=== PATIENT | female | born 1965 | race Caucasian/White ===

== ENCOUNTER 2017-04-09 19:27 | Emergency (ER) | payer OTHER ==
[~2017-04-09] VITALS: Ht 160 cm; Wt 45.5 kg
[~2017-04-09 19:27] MED LIST: CHOL4 PO; MEGE40TA PO; RANI150 PO; REME15TA PO; VENTAER INH
[2017-04-09 19:30] VITALS: BP 188/105; PULSE 110; RESP 18; TEMP 99; O2SAT 96
[2017-04-09 20:46] VITALS: BP 186/99; PULSE 94; RESP 14; O2SAT 99
[2017-04-09] MEDS ORDERED: PRAM1TAB PO (20:46)
[2017-04-09] MEDS ORDERED: MIRT30TA PO (20:46)
[2017-04-09] MEDS ORDERED: ZOLP5TAB3 PO (20:46)
[2017-04-09] MEDS ORDERED: GABA300C5 PO (20:46)
[2017-04-09 20:56] VITALS: O2SAT 100
[2017-04-09] MEDS ORDERED: SODIUM CHLORIDE 0.9% FLUSH 10 ML FLUSH IVF PRN (21:00)
--- NOTE | 2017-04-09 21:02 | PD ---
HPI Chief Complaint: Chest Pain Time Seen by Provider: 20:43 Travel History International Travel<30 days: No Contact w/Intl Traveler<30days: No Traveled to known affect area: No History of Present Illness HPI The patient was seen and examined in the presence of the nurse. This patient complains of chest pain. She's had chest pain every day for well over a year. It last for hours and hours on end. It is not exertional. She's had extensive evaluation for it. She said surgical attendant evaluation including negative stress testing. She's had negative CT of the thorax. Pain is located in the left lower chest underneath her left breast. She seen her primary physician for many times including 2 weeks ago and was started on gabapentin for possible fibromyalgia type diagnosis. She denies fever or productive cough or shortness of breath. Symptoms severity is moderate. No alleviating factors. She does note that it's worse when she is very stressed. PFSH Past Medical History Asthma: Yes Blood Disorders: No Anxiety: Yes Depression: Yes Cancer: No Cardiovascular Problems: Yes (VASCULAR INSUFFICENCY) Chest Pain: Yes COPD: Yes Diabetes: No Endocrine: No Gastrointestinal Disorders: Yes (GI BLEED) Glaucoma: No Genitourinary: Yes Headaches: Yes Hepatitis: No Hiatal Hernia: No Hypertension: Yes Immune Disorder: No Implanted Vascular Access Dvce: Yes Musculoskeletal: Yes Neurologic: Yes (PAIN RADIATION BRICE. LEGS) Psychiatric: Yes (CLAUSTRAPHOBIA, EATING DISORDER) Reproductive: No Respiratory: Yes (asthma) Immunizations Current: Yes Migraines: Yes Seizures: Yes (after anesthesia) Thyroid Disease: No Tetanus Vaccination: Unknown Influenza Vaccination: No ?: Not Past Surgical History Abdominal Surgery: No Body Medical Devices: x2 lung marquez - spinal stimulator lower back Cardiac Surgery: No Ear Surgery: No Endocrine Surgery: No Eye Surgery: No Genitourinary Surgery: No Gynecologic Surgery: No Neurologic Surgery: Yes (FUSION OF BACK) Oral Surgery: No Pacemaker: No Thoracic Surgery: Yes (RIGHT LUNG STAPLED) Other Surgery: Yes (STIMULATOR IMPLANT/4 SCRES IN BACK) Social History Alcohol Use: Yes (2 glasses wine qd) Tobacco Use: Yes (1/2 PPD) Substance Use: Yes (MJ) Allergies-Medications (Allergen,Severity, Reaction): Coded Allergies: No Known Allergies (Verified , 04/09/17) Reported Meds & Prescriptions Reported Meds & Active Scripts Active Reported Zolpidem (Zolpidem Tartrate) 5 Mg Tab 5 Mg PO HS PRN Pramipexole (Pramipexole Dihydrochloride) 1 Mg Tab 1 Mg PO HS Mirtazapine 30 Mg Tab 30 Mg PO HS Gabapentin 300 Mg Cap 300 Mg PO DAILY Review of Systems General / Constitutional: No: Fever Eyes: No: Visual changes HENT: No: Headaches Cardiovascular: Positive: Chest Pain or Discomfort Respiratory: No: Shortness of Breath Gastrointestinal: No: Abdominal Pain Genitourinary: No: Dysuria Musculoskeletal: No: Pain Skin: No Rash Neurologic: No: Weakness Psychiatric: No: Depression Endocrine: No: Polydipsia Hematologic/Lymphatic: No: Easy Bruising Physical Exam Narrative GENERAL: Well-nourished, well-developed patient in no apparent distress. SKIN: Focused skin assessment reveals no rash and nodules. Skin is Warm and dry. HEAD: Atraumatic. Normocephalic. EYES: Pupils equal and round. No scleral icterus. No injection or drainage. ENT: No nasal bleeding or discharge. Mucous membranes pink and moist. NECK: Trachea midline. No JVD. CARDIOVASCULAR: Regular rate and rhythm. No murmur appreciated. RESPIRATORY: No accessory muscle use. Clear to auscultation. Breath sounds equal bilaterally. GASTROINTESTINAL: Abdomen soft, non-tender, nondistended. Hepatic and splenic margins not palpable. MUSCULOSKELETAL: No obvious deformities. No clubbing. No cyanosis. No edema. No significant and consistent chest wall tenderness NEUROLOGICAL: Awake and alert. No obvious cranial nerve deficits. Motor grossly within normal limits. Normal speech. PSYCHIATRIC: Appropriate mood and affect; insight and judgment normal. Data Data Last Documented VS Vital Signs Date Time Temp Pulse Resp B/P (MAP) Pulse Ox O2 Delivery O2 Flow Rate FiO2 04/09/17 20:56 100 Room Air 04/09/17 20:51 95 04/09/17 20:46 14 04/09/17 19:30 99.0 Orders Orders Electrocardiogram (04/09/17 20:53) Basic Metabolic Panel (Bmp) (04/09/17 20:53) Ckmb (Isoenzyme) Profile (04/09/17 20:53) Complete Blood Count With Diff (04/09/17 20:53) Troponin I (04/09/17 20:53) Chest, Single Ap (04/09/17 20:53) Ecg Monitoring (04/09/17 20:53) Iv Access Insert/Monitor (04/09/17 20:53) Oximetry (04/09/17 20:53) Sodium Chloride 0.9% Flush (Ns Flush) (04/09/17 21:00) CKMB (04/09/17 21:00) CKMB% (04/09/17 21:00) Labs Laboratory Tests Test 04/09/17 21:00 White Blood Count 10.4 TH/MM3 Red Blood Count 4.28 MIL/MM3 Hemoglobin 14.9 GM/DL Hematocrit 45.2 % Mean Corpuscular Volume 105.7 FL Mean Corpuscular Hemoglobin 34.9 PG Mean Corpuscular Hemoglobin Concent 33.0 % Red Cell Distribution Width 15.2 % Platelet Count 378 TH/MM3 Mean Platelet Volume 8.2 FL Neutrophils (%) (Auto) 61.4 % Lymphocytes (%) (Auto) 27.9 % Monocytes (%) (Auto) 7.9 % Eosinophils (%) (Auto) 1.8 % Basophils (%) (Auto) 1.0 % Neutrophils # (Auto) 6.4 TH/MM3 Lymphocytes # (Auto) 2.9 TH/MM3 Monocytes # (Auto) 0.8 TH/MM3 Eosinophils # (Auto) 0.2 TH/MM3 Basophils # (Auto) 0.1 TH/MM3 CBC Comment DIFF FINAL Differential Comment Blood Urea Nitrogen 13 MG/DL Creatinine 0.90 MG/DL Random Glucose 74 MG/DL Calcium Level 8.8 MG/DL Sodium Level 138 MEQ/L Potassium Level 4.0 MEQ/L Chloride Level 105 MEQ/L Carbon Dioxide Level 19.5 MEQ/L Anion Gap 14 MEQ/L Estimat Glomerular Filtration Rate 66 ML/MIN Total Creatine Kinase 620 U/L Creatine Kinase MB 7.7 NG/ML Creatine Kinase MB % 1.2 % Troponin I LESS THAN 0.02 NG/ML MDM Medical Decision Making Medical Screen Exam Complete: Yes Emergency Medical Condition: Yes Medical Record Reviewed: Yes Differential Diagnosis Differential diagnosis includes GA, angina, pericarditis, pleurisy, GERD, anxiety. Narrative Course I have reviewed the patient's electronic medical record. IV placed I reviewed the EKG which shows sinus rhythm but no ST elevation or ectopy I reviewed the chest x-ray which shows some postsurgical changes but nothing acute Extended cardiac monitoring shows sinus rhythm without ectopy CBC is normal Metabolic profile is normal CK is slightly elevated but the MB percent is normal Troponin is normal Had a lengthy discussion with patient and . We reviewed the results. There is no indication of anything emergent happening. I don't think hospitalizing her for chest pain she's had every day for well over a year with multiple negative workups as appropriate. She wants to go home. She should discuss with her primary physician what the next step is Diagnosis Primary Impression: Chest pain of uncertain etiology Additional Instructions: The patient was advised to follow up with their physician and return if they worsen. Med/Other Pt SpecificInfo: Other Disposition: 01 DISCHARGE HOME Condition: Stable Vikram See MD Apr 09, 2017 21:02
[2017-04-09 21:37] LABS: AUTOMATED NEUTROPHIL # 6.4 TH/MM3 (1.8-7.7); BASOPHIL # 0.1 TH/MM3 (0-0.2); EOSINOPHIL # 0.2 TH/MM3 (0-0.4); EOSINOPHIL % 1.8 % (0.0-4.0); HEMATOCRIT 45.2 % (35.0-46.0); HEMO FLAGS DIFF FINAL; LYMPH % 27.9 % (9.0-44.0); LYMPHOCYTE # 2.9 TH/MM3 (1.0-4.8); MEAN CELL VOLUME 105.7 FL (80.0-100.0); MEAN CORPUSCULAR HEMOGLOBIN 34.9 PG (27.0-34.0); MONO % 7.9 % (0.0-8.0); NEUT % 61.4 % (16.0-70.0); PLATELET COUNT 378 TH/MM3 (150-450); RED BLOOD COUNT 4.28 MIL/MM3 (4.00-5.30); RED CELL DISTRIBUTION WIDTH 15.2 % (11.6-17.2); WHITE BLOOD COUNT 10.4 TH/MM3 (4.0-11.0)
[2017-04-09 22:03] LABS: ANION GAP 14 MEQ/L (5-15); BICARBONATE 19.5 MEQ/L (21.0-32.0); BLOOD UREA NITROGEN 13 MG/DL (7-18); CHLORIDE 105 MEQ/L (98-107); CREATINE KINASE 620 U/L (26-192); GLOMERULAR FILTRATION RATE 66 ML/MIN (>89); SODIUM (NA) 138 MEQ/L (136-145)
--- NOTE | 2017-04-09 22:09 | RADRPT ---
EXAM DATE/TIME: 04/09/2017 21:13 [facility] COMPARISON: CHEST SINGLE AP, May 17, 2013, 7:58. INDICATIONS : Left sided chest pain and shortness of breath. MEDICAL HISTORY : Asthma. SURGICAL HISTORY : None. ENCOUNTER: Initial ACUITY: 1 week PAIN SCORE: 9/10 LOCATION: Chest FINDINGS: The heart size is normal. The lungs appear hyperinflated. The lungs do appear clear. Shannon ng marquez are seen at the superior right lung. No effusion is seen. The bones are osteopenic. The re are spinal leads in place with the tips overlying the T8 through T10 levels. CONCLUSION: 1. No definite acute abnormality is seen. 2. Lungs are hyperinflated. The patient is status post lung surgery at the right upper lung. Humberto Pickering MD on April 09, 2017 at 21:49 Board Certified Radiologist. This report was verified electronically.
[2017-04-09 22:15] LABS: CKMB 7.7 NG/ML (0.5-3.6)
--- NOTE | 2017-04-10 17:56 | EKG ---
Date Performed: 04/09/2017 Time Performed: 19:50:19 PTAGE: 52 years EKG: Sinus rhythm WITH SHORT [place] INTERVAL BORDERLINE ECG Compared to prior tracing no significant change PREVIOUS TRACING : 05/11/2013 23.06 DOCTOR: Keith Pires Interpretating Date/Time 04/10/2017 17:55:57
== END 2017-04-09 23:01 | disposition home or self-care (01) ==
LOC: NEPC 19:27
DX: R07.9 Chest pain, unspecified (principal); R56.9 Unspecified convulsions; J45.909 Unspecified asthma, uncomplicated; F41.9 Anxiety disorder, unspecified; J44.9 Chronic obstructive pulmonary disease, unspecified; I10 Essential (primary) hypertension; F32.9 Major depressive disorder, single episode, unspecified; F17.200 Nicotine dependence, unspecified, uncomplicated; Z79.899 Other long term (current) drug therapy
CPT/HCPCS: 71010; 80048; 82550; 82552; 84484; 85025; 93005; 99285